=== PATIENT | female | born 1960 | race American Indian/Alaskan Native ===

== ENCOUNTER 2020-06-17 16:54 | Emergency (ER) | payer MEDICARE ==
--- NOTE | 2020-06-17 17:30 | Emergency Department Report ---
HPI - General Chief Complaint: Medical Clearance Time Seen by Provider: 06/17/20 17:13 - HPI HPI: This is a 60-year-old -[place] female presents to the emergency department with a complaint of bleeding around a right sided chest dialysis port that was placed/replaced on by Dr. Rand, vascular surgery. The patient says that she did receive dialysis on that , as well as today, but she has had bright red blood coming from around that port since it was placed 3 days ago. She has been changing the dressings herself. She denies that there is any hemorrhage of blood but sometimes will feel it dripping down her chest at some points. She also has a past medical history of CHF, diabetes, hypertension, coronary artery disease with a cardiac stent in place. Her financial services manager is Dr. Saldivar. ED Past Medical Hx - Past Medical History Previous Medical History?: Yes Hx Hypertension: Yes Hx Congestive Heart Failure: Yes Hx Diabetes: Yes Hx Renal Disease: Yes - Surgical History Past Surgical History?: Yes Hx Coronary Stent: Yes (June 2015 obtuse margin of circumflex) Additional Surgical History: hysterectomy - Social History Smoking Status: Former Smoker - Medications Home Medications: Home Medications Medication Instructions Recorded Confirmed Last Taken Type Aspirin [Aspirin BABY CHEW TAB] 81 mg PO QDAY tab.chew 05/18/20 Unknown Rx Aspirin [Aspirin BABY CHEW TAB] 81 mg PO QDAY #30 05/18/20 Unknown Rx Atorvastatin Calcium [Lipitor] 80 mg PO QHS #30 05/18/20 Unknown Rx Clopidogrel [Plavix] 75 mg PO QDAY #30 05/18/20 Unknown Rx Docusate Sodium [Colace CAP] 100 mg PO QDAY #30 cap 05/18/20 Unknown Rx Epoetin Ede 20,000 Unit [Procrit] 20,000 unit IV ELBERT PRN vial 05/18/20 Unknown Rx Famotidine [Pepcid] 10 mg PO BID #60 tablet 05/18/20 Unknown Rx Folic Acid/Vit B Complex and C 800 mcg PO QDAY #30 05/18/20 Unknown Rx [Dialyvite 800 Chewable Wafer] Gabapentin 300 mg PO Q8HR #30 cap 05/18/20 Unknown Rx Insulin Glargine [Lantus VIAL] 10 unit SUB-Q QHS 30 Days units 05/18/20 Unknown Rx Insulin Lispro [Humalog] 0 unit SUB-Q ACHS vial 05/18/20 Unknown Rx carvediloL [Coreg] 12.5 mg PO BID #60 05/18/20 Unknown Rx ED Review of Systems ROS: Stated complaint: CATH BLEEDING POST SURGERY Other details as noted in HPI Comment: All other systems reviewed and negative Constitutional: denies: chills, fever Eyes: denies: eye pain, vision change ENT: denies: ear pain, throat pain Respiratory: denies: cough, shortness of breath Cardiovascular: denies: chest pain, palpitations Gastrointestinal: denies: abdominal pain, vomiting Musculoskeletal: denies: back pain, arthralgia Skin: denies: rash, lesions Neurological: denies: numbness, paresthesias Hematological/Lymphatic: easy bleeding. denies: easy bruising Physical Exam - Physical Exam Vital Signs: Vital Signs 06/17/20 17:02 Temperature 98.0 F Respiratory 18 Rate Blood Pressure 129/66 [Right] O2 Sat by Pulse 98 Oximetry Physical Exam: GENERAL: The patient is well-developed well-nourished. HENT: Normocephalic. Atraumatic. Patient has moist mucous membranes. EYES: Extraocular motions are intact. NECK: Supple. Trachea is midline. CHEST/LUNGS: Clear to auscultation. There is no respiratory distress noted. There is a right-sided chest port in place. No active bleeding seen but there is some coagulated blood surrounding the port. HEART/CARDIOVASCULAR: Regular. There is no tachycardia. There is no murmur. ABDOMEN: Abdomen is soft, nontender. Patient has normal bowel sounds. SKIN: Skin is warm and dry. No erythema, ecchymosis, rash. NEURO: The patient is awake, alert, and oriented. The patient is cooperative. The patient has no focal neurologic deficits. Normal speech. MUSCULOSKELETAL: There is no tenderness or deformity. There is no limitation range of motion. ED Course Vital Signs 06/17/20 17:02 Temperature 98.0 F Respiratory 18 Rate Blood Pressure 129/66 [Right] O2 Sat by Pulse 98 Oximetry ED Medical Decision Making - Lab Data Result diagrams: 06/17/20 18:20 06/17/20 18:10 - Radiology Data Radiology results: image reviewed interpreted by me: Chest x-ray does not show any acute process. There are no pleural effusions, obvious pneumonia and there is no pneumothorax. No significant cardiomegaly. - Medical Decision Making This patient presents to the emergency department with a complaint of a 3-day history of some bleeding around the newly placed right-sided chest dialysis port. At the time of my examination there is no active bleeding or extravasation but there is some coagulated blood seen around the port and on the bandage as the patient had placed. The area was cleaned up and she was monitored for most 3 hours and there was no return of any bleeding around the chest port. Patient's hemoglobin is 15. Platelet count is about 160 and is not consistent with spontaneous bleeding. The patient tells me that she is on Eliquis, which may be part of the reason for the oozing of blood. Her vital signs have been stable throughout her ED course including being afebrile. No signs of any hypotension. The patient denies any physical complaints at this time including any lightheadedness, dizziness, shortness of breath or chest pain. The patient will be discharged home to follow-up with her vascular surgeon on Friday, to contact her financial services manager and potentially continue with her normal dialysis schedule. If there is any mild or oozing of blood, the patient will hold some pressure to see if the bleeding stops. If there is any increased bleeding, any concerns or signs of distress, the patient will go to the closest emergency department. The patient understands and agrees to this plan. Critical Care Time: No Critical care attestation.: If time is entered above; I have spent that time in minutes in the direct care of this critically ill patient, excluding procedure time. ED Disposition Clinical Impression: ESRD on hemodialysis Bleeding due to dialysis catheter placement Qualifiers: Encounter type: initial encounter Qualified Code(s): T82.838A - Hemorrhage due to vascular prosthetic devices, implants and grafts, initial encounter Disposition: DC- TO HOME OR SELFCARE Is pt being admited?: No Condition: Stable Additional Instructions: Please follow-up with your vascular surgeon on Friday. Please follow-up with your financial services manager regarding your dialysis schedule/regimen. Return to the closest emergency department with any increased bleeding from surrounding the dialysis catheter, development of shortness of breath or chest pain, or with any acute distress. Return to the emergency department with any worsening of your symptoms, new or concerning symptoms not addressed during this current emergency department visit, or with any acute distress. Referrals: FELECIA RAND MD [Staff Physician] - 2-3 Days NATALIE SALDIVAR MD [Staff Physician] - 2-3 Days Time of Disposition: 19:29
--- NOTE | 2020-06-17 18:06 | XRay Report ---
CHEST 1 VIEW INDICATION: Bleeding from chest port placed COMPARISON: 05/17/2020 FINDINGS: SUPPORT DEVICES: Hemodialysis catheter has tip in superior vena cava. Pacing device again noted overl yayo left hemithorax. HEART / MEDIASTINUM: Persisting cardiac enlargement LUNGS / PLEURA: Persistent airspace changes right middle and right lower lobe with a large right pleu ral effusion No pneumothorax. ADDITIONAL FINDINGS: IMPRESSION: 1. No significant interval change Signer Name: Julio Escamilla MD Signed: 06/17/2020 6:01 PM Workstation Name: [id number]
[2020-06-17 18:35] LABS: Basophils # (Auto) 0.1 K/mm3 (0.0-0.1); Basophils % (Auto) 1.1 % (0.0-1.8); Eosinophils # (Auto) 0.1 K/mm3 (0.0-0.4); Eosinophils % (Auto) 1.1 % (0.0-4.3); Hematocrit 46.9 % (30.3-42.9); Lymphocytes # (Auto) 0.9 K/mm3 (1.2-5.4); Mean Corpuscular HGB Conc 32 % (30-34); Mean Corpuscular Volume 88 fl (79-97); Monocytes # (Auto) 0.6 K/mm3 (0.0-0.8); Monocytes % (Auto) 9.2 % (0.0-7.3); Platelet Count 169 K/mm3 (140-440); Red Blood Count 5.36 M/mm3 (3.65-5.03); Red Cell Distribution Width 19.3 % (13.2-15.2)
[2020-06-17 19:06] LABS: Calcium 9.2 mg/dL (8.4-10.2)
[2020-06-17 19:35] VITALS: BP 148/85
== END 2020-06-17 19:45 | disposition home or self-care (01) ==
LOC: ED 16:54
DX: T82.838A Hemorrhage due to vascular prosthetic devices, implants and grafts, initial encounter (principal); E11.22 Type 2 diabetes mellitus with diabetic chronic kidney disease; I13.2 Hypertensive heart and chronic kidney disease with heart failure and with stage 5 chronic kidney disease, or end stage renal disease; I50.9 Heart failure, unspecified; N18.6 End stage renal disease; Z99.2 Dependence on renal dialysis; Z90.710 Acquired absence of both cervix and uterus; Z87.891 Personal history of nicotine dependence; Z79.4 Long term (current) use of insulin; Z79.899 Other long term (current) drug therapy; Z91.013 Allergy to seafood; Y92.89 Other specified places as the place of occurrence of the external cause
CPT/HCPCS: 36415; 71045; 80048; 85025